=== PATIENT | male | born 1985 | race Hispanic/Latino ===

== ENCOUNTER 2018-07-04 18:33 | Emergency (ER) | payer OTHER, SELFPAY ==
[2018-07-04] MEDS ORDERED: Acetaminophen 500 MG TAB ONE (19:18)
[2018-07-04] MEDS ORDERED: Ibuprofen 800 MG TAB ONE (19:18)
--- NOTE | 2018-07-04 19:40 | RAD ---
CHEST TWO VIEWS: History: Cough. FINDINGS: No comparison. Cardiac silhouette is unremarkable. Pulmonary vasculature upper limits of normal. Medi astinum is midline. No lobar consolidation or evidence of pneumothorax. potline monitor leads overlie the chest. IMPRESSION: No active cardiopulmonary abnormalities are demonstrated. POS: [facility]
== END 2018-07-04 22:10 | disposition home or self-care (01) ==
LOC: ERS 18:33
DX: J06.9 Acute upper respiratory infection, unspecified (principal)
CPT/HCPCS: 71046; 87804; 96360